=== PATIENT | male | born 1955 | race Asian ===

== ENCOUNTER → 2016-07-29 | Outpatient (CLI) | payer OTHER | LOC: KOH-I 13:27 | DX: I63.9 Cerebral infarction, unspecified (principal); R90.89 Other abnormal findings on diagnostic imaging of central nervous system | CPT/HCPCS: 70553; A9577 ==

== ENCOUNTER → 2016-10-02 | Outpatient (CLI) | payer OTHER | LOC: KOH-I 09-27 09:30 | DX: M54.12 Radiculopathy, cervical region (principal); M48.02 Spinal stenosis, cervical region; M25.78 Osteophyte, vertebrae; M99.71 Connective tissue and disc stenosis of intervertebral foramina of cervical region; M47.892 Other spondylosis, cervical region | CPT/HCPCS: 72141 ==

== ENCOUNTER → 2020-05-05 | Outpatient (CLI) | payer MEDICARE, OTHER ==
[~2020-05-05] MED LIST: OMNICEF 300 MG300 MG PO
== END ==
LOC: KOH-I 13:22
DX: N28.1 Cyst of kidney, acquired (principal)
CPT/HCPCS: 76775

== ENCOUNTER 2020-10-09 02:31 | Emergency (ER) | payer MEDICARE, OTHER ==
[2020-10-09 03:21] LABS: HEMOGLOBIN 13.7 gm/dl (14.0-17.5); RED BLOOD COUNT 4.77 M/UL (4.20-5.50)
[2020-10-09] MEDS ORDERED: OMNICEF 300 MG300 MG PO (06:16)
== END 2020-10-09 06:30 | disposition home or self-care (01) ==
LOC: ER1 02:31
PROVIDERS: Physician Assistant
DX: R06.02 Shortness of breath (principal); R65.10 Systemic inflammatory response syndrome (SIRS) of non-infectious origin without acute organ dysfunction; I25.10 Atherosclerotic heart disease of native coronary artery without angina pectoris; E11.9 Type 2 diabetes mellitus without complications; I10 Essential (primary) hypertension; E78.5 Hyperlipidemia, unspecified; Z86.73 Personal history of transient ischemic attack (TIA), and cerebral infarction without residual deficits; I25.2 Old myocardial infarction; Z95.1 Presence of aortocoronary bypass graft
CPT/HCPCS: 71045; 80053; 82550; 82553; 83605; 83874; 83880; 84484; 85025; 85379; 85610; 85730; 87040; 93005; 99283; 99285; Q9967

== ENCOUNTER 2020-10-09 09:55 | Emergency (ER) | payer MEDICARE, OTHER | END 2020-10-09 13:00 | disposition home or self-care (01) | LOC: ER1 09:55 | DX: I70.1 Atherosclerosis of renal artery (principal); J44.9 Chronic obstructive pulmonary disease, unspecified; I11.9 Hypertensive heart disease without heart failure; E11.9 Type 2 diabetes mellitus without complications | CPT/HCPCS: 93005 ==

== ENCOUNTER 2021-01-04 18:44 | Inpatient (IN) | payer MEDICARE, OTHER ==
[2021-01-04 19:18] LABS: HEMOGLOBIN 16.3 gm/dl (14.0-17.5); RED BLOOD COUNT 6.12 M/UL (4.20-5.50); WHITE BLOOD COUNT 7.3 K/UL (4.5-11.0)
[2021-01-05 01:35] LABS: WHITE BLOOD COUNT 5.5 K/UL (4.5-11.0)
[2021-01-05 01:42] LABS: HEMOGLOBIN 12.8 gm/dl (14.0-17.5); RED BLOOD COUNT 4.9 M/UL (4.20-5.50)
[2021-01-05 01:58] LABS: BUN/CREATININE RATIO 34 (0-10)
[2021-01-05] MEDS ORDERED: ZYLOPRIM 100 M100 MG PO (12:03)
[2021-01-05] MEDS ORDERED: NEURONTIN300 MG PO (12:04)
[2021-01-05] MEDS ORDERED: LIORESAL TAB 1010 MG PO (12:04)
[2021-01-05] MEDS ORDERED: CRESTOR10 MG PO (12:04)
[2021-01-05] MEDS ORDERED: CATAPRES-TTS 21 EACH TP (12:04)
[2021-01-05] MEDS ORDERED: JANUVIA50 MG PO (12:05)
[2021-01-05] MEDS ORDERED: FLOMAX 0.4 MG0.4 MG PO (12:05)
[2021-01-05] MEDS ORDERED: COREG25 MG PO (12:06)
[2021-01-05] MEDS ORDERED: GLIPIZIDE ER5 MG PO (12:06)
[2021-01-05] MEDS ORDERED: CATAPRES 0.1MG0.1 MG PO (12:06)
[2021-01-05] MEDS ORDERED: HYDROCHLOROTHIA25 MG PO (12:06)
[2021-01-05] MEDS ORDERED: COZAAR100 MG PO (12:07)
[2021-01-05] MEDS ORDERED: PROAIR HFA8.5 GM INH (12:10)
[2021-01-05] MEDS ORDERED: VOLTAREN ARTHRI20 GM TOP (12:54)
[2021-01-05 13:38] LABS: ACINETOBACTER BAUMANNII Not Detected (Negative); CANDIDA ALBICANS Not Detected (Negative); CANDIDA KRUSEI Not Detected (Negative); CANDIDA TROPICALIS Not Detected (Negative); ENTEROCOCCUS Not Detected (Negative); ESCHERICHIA COLI Not Detected (Negative); HAEMOPHILUS INFLUENZAE Not Detected (Negative); KLEBSIELLA OXYTOCA Not Detected (Negative); KLEBSIELLA PNEUMONIAE Not Detected (Negative); KPC-CARBAPENEM-RESISTANCE GENE Not Detected (Negative); PROTEUS Not Detected (Negative); PSEUDOMONAS AERUGINOSA Not Detected (Negative); SERRATIA MARCESANS Not Detected (Negative); STAPHYLOCOCCUS AUREUS Not Detected (Negative); STREP AGALACTIAE (GROUP B) Not Detected (Negative); STREP PYOGENES (GROUP A) Not Detected (Negative); STREPTOCOCCUS Not Detected (Negative); vanA/B (VANCOMYCIN RESIST GENE Not Detected (Negative)
[2021-01-05 15:10] LABS: STAPHYLOCOCCUS DETECTED (Negative); mecA (METHICILLIN RESIST GENE DETECTED (Negative)
== END 2021-01-05 20:48 | disposition left against medical advice (07) | DRG 871 ==
LOC: ER1 18:44 → CDU 01-05 00:34
PROVIDERS: Emergency Medicine; ADMIT Internal Medicine
PROC: XW033E5 Introduction of Remdesivir Anti-infective into Peripheral Vein, Percutaneous Approach, New Technology Group 5 (ICD-10-PCS; principal; 2021-01-04)
PROC: 3E0333Z Introduction of Anti-inflammatory into Peripheral Vein, Percutaneous Approach (ICD-10-PCS; 2021-01-04)
PROC: 8E0ZXY6 Isolation (ICD-10-PCS; 2021-01-04)
DX: A41.89 Other specified sepsis (principal); U07.1 COVID-19; J12.82 Pneumonia due to coronavirus disease 2019; J96.01 Acute respiratory failure with hypoxia; E87.2 Acidosis; N17.9 Acute kidney failure, unspecified; E87.6 Hypokalemia; I12.9 Hypertensive chronic kidney disease with stage 1 through stage 4 chronic kidney disease, or unspecified chronic kidney disease; N18.9 Chronic kidney disease, unspecified; E11.9 Type 2 diabetes mellitus without complications; I25.10 Atherosclerotic heart disease of native coronary artery without angina pectoris; E86.0 Dehydration; J45.909 Unspecified asthma, uncomplicated; Z95.1 Presence of aortocoronary bypass graft; Z86.73 Personal history of transient ischemic attack (TIA), and cerebral infarction without residual deficits; Z79.4 Long term (current) use of insulin; Z91.14 Patient's other noncompliance with medication regimen
CPT/HCPCS: 36600; 51702; 70450; 71045; 80053; 81001; 82550; 82553; 82803; 82962; 83605; 83874; 84484; 85025; 87040; 87077; 87150; 87186; 93005; 96374; 96375; 99285; J0696; J1100; J7030; U0002